=== PATIENT | male | born 1955 | race Caucasian/White ===

== ENCOUNTER 2017-06-28 09:21 | Observation (INO) | payer OTHER, MEDICAID ==
[2017-06-28] VITALS (11 sets, daily range): BP systolic 140–164; BP diastolic 75–92; PULSE 68–89; RESP 16–20; TEMP 96.1–98.4; O2SAT 95–97
[~2017-06-28] VITALS: Ht 193 cm; Wt 83.7 kg
[~2017-06-28 09:21] MED LIST: ATOR20TA42 PO; CYCL-36 PO; LEVO.05 PO; LITH300 PO; NAPR250T57 PO; OLAN2.5T PO; OMEP10CA37 PO; PROP10TA6 PO
[2017-06-28] MEDS ORDERED: SODIUM CHLORIDE 0.9% FLUSH 10 ML FLUSH IVF PRN (09:45)
--- NOTE | 2017-06-28 09:51 | PD ---
HPI Chief Complaint: Neuro Symptoms/ Deficits Time Seen by Provider: 09:28 Travel History International Travel<30 days: No Contact w/Intl Traveler<30days: No Traveled to known affect area: No History of Present Illness HPI The patient is a 62-year-old male who presents to the emergency department. Painless loss of vision in the left eye. The patient with the bed last night feeling well with no difficulties, when he awakened this morning he noticed that he had lost most of the vision of the left eye. The patient states he is able to see light from the left eye and it feels like everything is standing behind a curtain. He denies any pain with the left eye and denies any history of vision loss in the past. The patient does have a history of hypertension, hyperlipidemia and tobacco use. He denies any known history of CAD, PVD, or previous TIA/CVA. The patient's denies any trauma to the left eye , simply states he awakened with diminished vision out of the left eye. Symptoms are moderate, there are no current alleviating or exacerbating factors. The patient also complains of being lightheaded and dizzy, denies any dysarthria or focal deficits of the upper or lower extremities. PFSH Past Medical History Arthritis: Yes Bipolar Disorder: Yes Cardiovascular Problems: Yes COPD: Yes (EMPHYSEMA) Diminished Hearing: No Endocrine: No Gastrointestinal Disorders: No Genitourinary: No Hepatitis: Yes (C) Immune Disorder: No Musculoskeletal: Yes Neurologic: No Respiratory: No Immunizations Current: Yes Thyroid Disease: Yes Past Surgical History Cholecystectomy: Yes Other Surgery: No Social History Alcohol Use: No Tobacco Use: Yes Substance Use: No Allergies-Medications (Allergen,Severity, Reaction): Coded Allergies: No Known Allergies (Verified , 03/18/16) Reported Meds & Prescriptions Reported Meds & Active Scripts Active Reported Levothyroxine (Levothyroxine Sodium) 50 Mcg Tab 50 Mcg PO DAILY Flexeril (Cyclobenzaprine HCl) 10 Mg Tab 10 Mg PO TID Atorvastatin (Atorvastatin Calcium) 20 Mg Tab 20 Mg PO DAILY Olanzapine 2.5 Mg Tab 2.5 Mg PO BID Omeprazole 10 Mg Cap 10 Mg PO DAILY Propranolol (Propranolol HCl) 10 Mg Tab 10 Mg PO Q12HR Review of Systems Except as stated in HPI: all other systems reviewed are Neg General / Constitutional: No: Fever Eyes: Positive: Visual changes, Blindness, No: Diploplia, Photophobia, Redness , Foreign Body Sensation, Pain, Tearing HENT: Positive: Lightheadedness, No: Headaches Cardiovascular: No: Chest Pain or Discomfort Respiratory: No: Shortness of Breath Gastrointestinal: No: Nausea, Vomiting, Abdominal Pain Musculoskeletal: No: Weakness Neurologic: Positive: Dizziness, No: Focal Abnormalities, Headache, Change in Mentation, Slurred Speech, Paresthesia, Sensory Disturbance Physical Exam Narrative GENERAL: Awake, alert, pleasant 62-year-old male who appears his stated age and is in no acute respiratory distress. SKIN: Focused skin assessment warm/dry. HEAD: Atraumatic. Normocephalic. EYES: Pupils equal and round. The right pupil response to light and there is consensual constriction of the left eye. However, the left eye does not constrict with light, appears to have afferent pupillary defect. EOMs are intact. Patient is able to see fingers at a distance of 2 feet from the right eye without difficulty, has difficulty seeing shapes out of the left eye at 2 feet. Cannot see my hand or fingers at a distance of 2 feet. ENT: No nasal bleeding or discharge. No visible teeth. Breath smells of tobacco. NECK: Trachea midline. No JVD. CARDIOVASCULAR: Regular rate and rhythm. No murmur appreciated. RESPIRATORY: No accessory muscle use. Clear to auscultation. Breath sounds equal bilaterally. GASTROINTESTINAL: Abdomen soft, non-tender, nondistended. No rebound tenderness. MUSCULOSKELETAL: No obvious deformities. No clubbing. No cyanosis. No edema. NEUROLOGICAL: Awake and alert. Afferent left pupillary defect. Motor grossly within normal limits. Normal speech. Nonfocal. Alert and oriented 4. No drift of the upper or lower extremities. Finger to nose is normal. Heel-to- gutierrez is normal. PSYCHIATRIC: Appropriate mood and affect; insight and judgment normal. Data Data Last Documented VS Vital Signs Date Time Temp Pulse Resp B/P (MAP) Pulse Ox O2 Delivery O2 Flow Rate FiO2 06/28/17 10:42 Room Air 06/28/17 10:25 87 17 97 06/28/17 09:30 98.4 Orders Orders Electrocardiogram (06/28/17 09:38) Prothrombin Time / Inr (Pt) (06/28/17 09:38) Act Partial Throm Time (Ptt) (06/28/17 09:38) Complete Blood Count With Diff (06/28/17 09:38) Comprehensive Metabolic Panel (06/28/17 09:38) Creatine Kinase (Cpk) (06/28/17 09:38) Troponin I (06/28/17 09:38) Ct Brain W/O Iv Contrast(Rout) (06/28/17 09:38) Ecg Monitoring (06/28/17 09:38) Iv Access Insert/Monitor (06/28/17 09:38) Oximetry (06/28/17 09:38) Sodium Chloride 0.9% Flush (Ns Flush) (06/28/17 09:45) Aspirin Chew (Aspirin Chew) (06/29/17 09:00) Aspirin Chew (Aspirin Chew) (06/28/17 10:30) Admit To Inpatient (06/28/17 ) Nih Stroke Scale - Nihss .On admission and discharge (06/28/17 10:43) Neuro Checks Q4H (06/28/17 10:43) Notify Dr: Other (06/28/17 10:43) Consult Pt Eval & Treat (06/28/17 10:43) Case Management Consult (06/28/17 ) Activity Bed Rest (06/28/17 10:43) Nursing Bedside Swallow Assess .ONCE (06/28/17 10:43) Scd Bilateral/Knee High DUONG.QSHIFT (06/28/17 10:43) Hemoglobin (Hgb) A1c (06/28/17 10:43) Lipid Profile (06/29/17 06:00) Us Carotid Arteries Comp Bilat (06/28/17 ) Holter Monitor Recording (06/28/17 ) Mri Brain W/O Contrast (06/28/17 ) Echo 2d Comp With Doppler (06/28/17 ) Resp Oxygen Erickson C Titrat 1-4 L (06/28/17 ) ^ Hold Medication (06/28/17 10:43) Consult Neurology (06/28/17 ) Sodium Chloride 0.9% Flush (Ns Flush) (06/28/17 21:00) Sodium Chloride 0.9% Flush (Ns Flush) (06/28/17 10:45) Enalaprilat Inj (Vasotec Inj) (06/28/17 10:45) Aspirin (Aspirin) (06/29/17 09:00) Bedside Glucose DUONG.CSUGAR (06/28/17 10:43) ^ Discontinue Insulin Orders (06/28/17 10:43) Insulin Aspart Supplemtl Scale (Novolog (06/28/17 12:00) Dextrose 50% In Mp (Vial) Inj (D50w (Vi (06/28/17 10:45) Glucagon Inj (Glucagon Inj) (06/28/17 10:45) Cell Tester / Telemetry DUONG.Q8H (06/28/17 10:43) Scd Bilateral/Knee High DUONG.BID (06/28/17 10:43) Inpatient Certification (06/28/17 ) Ondansetron Inj (Zofran Inj) (06/28/17 10:45) Acetaminophen (Tylenol) (06/28/17 10:45) Acetamin-Hydrocod 325-5 Mg (Belcher 5-325 (06/28/17 10:45) Magnesium Hydroxide Liq (Milk Of Magnesi (06/28/17 10:45) Atorvastatin (Lipitor) (06/29/17 09:00) Cyclobenzaprine (Flexeril) (06/28/17 13:00) Levothyroxine (Synthroid) (06/29/17 09:00) Olanzapine (Zyprexa) (06/28/17 21:00) Propranolol (Inderal) (06/28/17 21:00) (Nf) Omeprazole (06/29/17 09:00) Consult Neurology (06/28/17 ) Admit Order (Ed Use Only) (06/28/17 ) Vital Signs (Adult) Q4H (06/28/17 10:51) Diet Npo (06/28/17 Lunch) Activity Oob With Assistance (06/28/17 10:51) Labs Laboratory Tests Test 06/28/17 10:05 White Blood Count 16.3 TH/MM3 Red Blood Count 4.90 MIL/MM3 Hemoglobin 15.0 GM/DL Hematocrit 44.1 % Mean Corpuscular Volume 90.0 FL Mean Corpuscular Hemoglobin 30.7 PG Mean Corpuscular Hemoglobin Concent 34.1 % Red Cell Distribution Width 11.4 % Platelet Count 330 TH/MM3 Mean Platelet Volume 7.4 FL Neutrophils (%) (Auto) 82.0 % Lymphocytes (%) (Auto) 9.6 % Monocytes (%) (Auto) 7.6 % Eosinophils (%) (Auto) 0.0 % Basophils (%) (Auto) 0.8 % Neutrophils # (Auto) 13.4 TH/MM3 Lymphocytes # (Auto) 1.6 TH/MM3 Monocytes # (Auto) 1.2 TH/MM3 Eosinophils # (Auto) 0.0 TH/MM3 Basophils # (Auto) 0.1 TH/MM3 CBC Comment DIFF FINAL Differential Comment Prothrombin Time 10.8 SEC Prothromb Time International Ratio 1.0 RATIO Activated Partial Thromboplast Time 29.7 SEC Blood Urea Nitrogen 10 MG/DL Creatinine 1.00 MG/DL Random Glucose 112 MG/DL Total Protein 8.4 GM/DL Albumin 4.1 GM/DL Calcium Level 8.8 MG/DL Alkaline Phosphatase 96 U/L Aspartate Amino Transf (AST/SGOT) 9 U/L Alanine Aminotransferase (ALT/SGPT) 19 U/L Total Bilirubin 0.5 MG/DL Sodium Level 140 MEQ/L Potassium Level 3.8 MEQ/L Chloride Level 105 MEQ/L Carbon Dioxide Level 27.0 MEQ/L Anion Gap 8 MEQ/L Estimat Glomerular Filtration Rate 76 ML/MIN Total Creatine Kinase 99 U/L Troponin I LESS THAN 0.02 NG/ML MDM Medical Decision Making Medical Screen Exam Complete: Yes Emergency Medical Condition: Yes Medical Record Reviewed: Yes Interpretation(s) Last Impressions Head CT 06/28/17 0938 Signed Impressions: Service Date/Time: Wednesday, June 28, 2017 09:48 - CONCLUSION: 1. No acute intracranial abnormality is identified. 2. Chronic changes include mild white matter changes characteristic of chronic microvascular ischemia and old lacunes in the basal ganglia bilaterally. Isra Montelongo MD EKG reveals normal sinus rhythm with a rate 85. No ischemic changes or ectopy noted. Laboratory Tests Test 06/28/17 10:05 White Blood Count 16.3 TH/MM3 Red Blood Count 4.90 MIL/MM3 Hemoglobin 15.0 GM/DL Hematocrit 44.1 % Mean Corpuscular Volume 90.0 FL Mean Corpuscular Hemoglobin 30.7 PG Mean Corpuscular Hemoglobin Concent 34.1 % Red Cell Distribution Width 11.4 % Platelet Count 330 TH/MM3 Mean Platelet Volume 7.4 FL Neutrophils (%) (Auto) 82.0 % Lymphocytes (%) (Auto) 9.6 % Monocytes (%) (Auto) 7.6 % Eosinophils (%) (Auto) 0.0 % Basophils (%) (Auto) 0.8 % Neutrophils # (Auto) 13.4 TH/MM3 Lymphocytes # (Auto) 1.6 TH/MM3 Monocytes # (Auto) 1.2 TH/MM3 Eosinophils # (Auto) 0.0 TH/MM3 Basophils # (Auto) 0.1 TH/MM3 CBC Comment DIFF FINAL Differential Comment Prothrombin Time 10.8 SEC Prothromb Time International Ratio 1.0 RATIO Activated Partial Thromboplast Time 29.7 SEC Blood Urea Nitrogen 10 MG/DL Creatinine 1.00 MG/DL Random Glucose 112 MG/DL Total Protein 8.4 GM/DL Albumin 4.1 GM/DL Calcium Level 8.8 MG/DL Alkaline Phosphatase 96 U/L Aspartate Amino Transf (AST/SGOT) 9 U/L Alanine Aminotransferase (ALT/SGPT) 19 U/L Total Bilirubin 0.5 MG/DL Sodium Level 140 MEQ/L Potassium Level 3.8 MEQ/L Chloride Level 105 MEQ/L Carbon Dioxide Level 27.0 MEQ/L Anion Gap 8 MEQ/L Estimat Glomerular Filtration Rate 76 ML/MIN Total Creatine Kinase 99 U/L Troponin I LESS THAN 0.02 NG/ML Differential Diagnosis Differential diagnosis includes amaurosis fugax, CVA, TIA, central retinal artery occlusion, central retinal vein occlusion, MS, optic neuritis. Narrative Course IV was established, labs are drawn and sent, and the patient was placed on cardiac telemetry monitoring and continuous pulse oximetry monitoring. EKG was ordered and interpreted. Stat CT of the brain was obtained. A call was placed to neurology at 9:[address] of the brain reveals old lacunar infarcts and chronic small white vascular changes, no hemorrhage, therefore, patient was administered aspirin 162 mg orally. Laboratory evaluation is unremarkable. Patient has monocular vision loss with dizziness, most likely versus food, possibly ischemic. TIA/CVA. I had a discussion with the neurologist on-call, Dr. Marsh, who request MRI of the brain and ultrasound of the carotids. I discussed the patient with the on-call hospitalist for [facility], Dr. Baum, who agrees with 23 hour observation. Physician Communication Physician Communication I discussed the patient with Dr. Baum who agrees with 23 hour observation. Diagnosis Primary Impression: Amaurosis fugax of left eye Admitting Information Admitting Physician Requests: Observation Condition: Stable Harry Arteaga MD Jun 28, 2017 09:51
--- NOTE | 2017-06-28 10:02 | RADRPT ---
EXAM DATE/TIME: 06/28/2017 09:48 [facility] COMPARISON: No previous studies available for comparison. INDICATIONS : Dizziness. Visual disturbance left eye. Evaluate for cerebral vascular accident. RADIATION DOSE: 63.01 CTDIvol (mGy) MEDICAL HISTORY : Patient reports that he is unable to see out of his left eye. Chronic obstructive pulmonary disease. Hepatitis C. SURGICAL HISTORY : Cholecystectomy. ENCOUNTER: Initial ACUITY: 1 day PAIN SCALE: 0/10 LOCATION: cranial TECHNIQUE: Multiple contiguous axial images were obtained of the head. Using automated exposure control and adj ustment of the mA and/or kV according to patient size, radiation dose was kept as low as reasonably a chievable to obtain optimal diagnostic quality images. DICOM format image data is available electro nically for review and comparison. FINDINGS: CEREBRUM: There is mild generalized atrophy. Ventricles are normal. There is mild periventricular white matter low attenuation. There are 2 right and one left well-defined low-density in the left basal ganglia ch aracteristic of old lacunes. No evidence of midline shift, mass lesion, hemorrhage or acute infarcti on. No extra-axial fluid collections are seen. POSTERIOR FOSSA: The cerebellum and brainstem are intact. The 4th ventricle is midline. The cerebellopontine angle i s unremarkable. EXTRACRANIAL: Visualized sinuses are clear. The globes have a normal appearance. SKULL: The calvaria is intact. No evidence of skull fracture. CONCLUSION: 1. No acute intracranial abnormality is identified. 2. Chronic changes include mild white matter changes characteristic of chronic microvascular ischemia and old lacunes in the basal ganglia bilaterally. Isra Montelongo MD on June 28, 2017 at 9:57 Board Certified Radiologist. This report was verified electronically.
[2017-06-28 10:12] LABS: AUTOMATED NEUTROPHIL # 13.4 TH/MM3 (1.8-7.7); BASOPHIL # 0.1 TH/MM3 (0-0.2); BASOPHIL % 0.8 % (0.0-2.0); HEMATOCRIT 44.1 % (39.0-51.0); LYMPH % 9.6 % (9.0-44.0); LYMPHOCYTE # 1.6 TH/MM3 (1.0-4.8); MEAN CORPUSCULAR HEMOGLOBIN 30.7 PG (27.0-34.0); MEAN CORPUSCULAR HGB CONC 34.1 % (32.0-36.0); MONO % 7.6 % (0.0-8.0); PLATELET COUNT 330 TH/MM3 (150-450); RED CELL DISTRIBUTION WIDTH 11.4 % (11.6-17.2); WHITE BLOOD COUNT 16.3 TH/MM3 (4.0-11.0)
[2017-06-28 10:13] LABS: HEMO FLAGS DIFF FINAL
[2017-06-28 10:21] LABS: CHLORIDE 105 MEQ/L (98-107); POTASSIUM 3.8 MEQ/L (3.5-5.1); SODIUM (NA) 140 MEQ/L (136-145)
[2017-06-28 10:25] LABS: ANION GAP 8 MEQ/L (5-15); APTT (PATIENT) 29.7 SEC (24.3-30.1); BLOOD UREA NITROGEN 10 MG/DL (7-18); PROTHROMBIN TIME - PATIENT 10.8 SEC (9.8-11.6)
[2017-06-28 10:28] LABS: ALT (GPT) 19 U/L (12-78); AST (GOT) 9 U/L (15-37); GLOMERULAR FILTRATION RATE 76 ML/MIN (>89)
[2017-06-28 10:29] LABS: TOTAL BILIRUBIN ADULT 0.5 MG/DL (0.2-1.0)
[2017-06-28] MEDS ORDERED: ASPIRIN 81 MG CHEW TAB CHEW ONE (10:30)
[2017-06-28 10:31] LABS: ALKALINE PHOSPHATASE 96 U/L (45-117)
[2017-06-28 10:37] LABS: CREATINE KINASE 99 U/L (39-308)
[2017-06-28] MEDS ORDERED: CYCL1TAB29 PO (10:40)
[2017-06-28] MEDS ORDERED: OLAN2.5T PO (10:40)
[2017-06-28] MEDS ORDERED: PROP10TA6 PO (10:40)
[2017-06-28] MEDS ORDERED: ATOR20TA15 PO (10:40)
[2017-06-28] MEDS ORDERED: OMEP10CA PO (10:40)
[2017-06-28] MEDS ORDERED: LEVO50TA4 PO (10:40)
[2017-06-28] MEDS ORDERED: ACETAMINOPHEN/HYDROcodone 325 MG/5 MG TAB PO PRN (10:45)
[2017-06-28] MEDS ORDERED: ACETAMINOPHEN 325 MG TAB PO PRN (10:45)
[2017-06-28] MEDS ORDERED: SODIUM CHLORIDE 0.9% FLUSH 5 ML FLUSH IV FLUSH PRN (10:45)
[2017-06-28] MEDS ORDERED: ENALAPRILAT 1.25 MG/ML VIAL IV PUSH PRN (10:45)
[2017-06-28] MEDS ORDERED: DEXTROSE 50% IN WATER 50 ML VIAL(D50) IV PUSH PRN (10:45)
[2017-06-28] MEDS ORDERED: MAGNESIUM HYDROXIDE SUSP 30 ML CUP PO PRN (10:45)
[2017-06-28] MEDS ORDERED: GLUCAGON 1 MG/ML VIAL OTHER PRN (10:45)
[2017-06-28] MEDS ORDERED: ONDANSETRON HCL 4 MG/2 ML VIAL IVP PRN (10:45)
[2017-06-28] MEDS: INSULIN ASPART SUPPLEMENTAL SCALE SQ SCH ×3 (12:00→21:00)
--- NOTE | 2017-06-28 12:01 | RADRPT ---
EXAM DATE/TIME: 06/28/2017 11:23 [facility] COMPARISON: No previous studies available for comparison. INDICATIONS : Amarosis fugax left. MEDICAL HISTORY : Hepatitis C. Hypertension. Chronic obstructive pulmonary disease. SURGICAL HISTORY : Cholecystectomy. ENCOUNTER: Initial ACUITY: 1 day PAIN SCORE: 0/10 LOCATION: Bilateral neck PEAK SYSTOLIC VELOCITIES (cm/sec): ICA/CCA RATIO: Right: 0.9 Left: 0.6 ICA: Right: 65 Left: 48 CCA: Right: 71 Left: 75 ECA: Right: 60 Left: 56 VERTEBRAL: Right: 40 antegrade Left: 61 antegrade Elevated flow velocities and ICA/CCA ratios have been found to correlate with increased degrees of vessel stenosis, calculated as percentage of diameter relative to a normal segment of distal ICA/CCA FINDINGS: RIGHT CAROTID: No significant stenosis is visualized. There is mild intimal thickening. The waveforms are within nor mal limits. LEFT CAROTID: No significant stenosis is visualized. There is mild intimal thickening The waveforms are within nor mal limits. VERTEBRAL ARTERIES: Antegrade flow is seen in both vertebral arteries. MISCELLANEOUS: None. CONCLUSION: 1. No significant atherosclerotic disease or stenosis is present within either internal carotid arter y. 2. There is antegrade flow within both vertebral arteries. Isra Montelongo MD on June 28, 2017 at 11:58 Board Certified Radiologist. This report was verified electronically.
[2017-06-28] MEDS: CYCLOBENZAPRINE HCL 10 MG TAB PO SCH ×2 (13:27→16:51)
--- NOTE | 2017-06-28 13:47 | HHI.HP ---
[facility] Service [facility] Primary Care Physician Josh Kauffman MD Admission Diagnosis amaurosis fugax, monocular loss of vision left eye, afferent pup Diagnoses: Chief Complaint: "I was blinded by the light" Travel History International Travel<30 Days: No Contact w/Intl Traveler <30 Da: No Traveled to Known Affected Are: No History of Present Illness This is a pleasant 62-year-old male with past medical history of hypertension, hyperlipidemia and COPD who presents for painless loss of vision in the left eye. The patient went to bed last night feeling well. When he woke this morning he noticed that he was having flashes of light in the left eye and could not see from that eye. The patient denies any history of vision problems. Patient denies slurred speech, unilateral weakness, paresthesias. No previous history of TIA or CVA. No history of atrial fibrillation. No headache. No history of coronary artery disease. He does not take an aspirin a day. Patient also complained of being somewhat lightheaded and dizzy. Symptoms moderate, no palliative or provocative factors. Review of Systems Constitutional: DENIES: Fever, Chills Eyes: COMPLAINS OF: Vision loss, DENIES: Eye pain, Photosensitivity Ears, nose, mouth, throat: DENIES: Throat pain, Hoarseness Respiratory: DENIES: Cough, Shortness of breath Cardiovascular: DENIES: Chest pain, Palpitations Gastrointestinal: DENIES: Nausea, Vomiting Genitourinary: DENIES: Urgency Musculoskeletal: DENIES: Back pain, Neck pain Integumentary: DENIES: Rash Hematologic/lymphatic: DENIES: Lymphadenopathy Neurologic: DENIES: Headache, Localized weakness, Paresthesias, Speech Problems , Poor Balance Psychiatric: DENIES: Anxiety, Confusion Past Family Social History Past Medical History Hypertension Emphysema/COPD Hyperlipidemia GERD Essential tremor Hypothyroidism Hepatitis C Past Surgical History Cholecystectomy Reported Medications Allergies Coded Allergies Type Severity Reaction Last Updated Verified No Known Allergies 03/18/16 Yes Active Scripts Medications Dose Route/Sig Max Daily Dose Days Date Category Levothyroxine (Levothyroxine Sodium) 50 Mcg Tab 50 Mcg PO DAILY 06/28/17 Reported Flexeril (Cyclobenzaprine HCl) 10 Mg Tab 10 Mg PO TID 06/28/17 Reported Atorvastatin (Atorvastatin Calcium) 20 Mg Tab 20 Mg PO DAILY 06/28/17 Reported Olanzapine 2.5 Mg Tab 2.5 Mg PO BID 06/28/17 Reported Omeprazole 10 Mg Cap 10 Mg PO DAILY 06/28/17 Reported Propranolol (Propranolol HCl) 10 Mg Tab 10 Mg PO Q12HR 06/28/17 Reported Allergies: Coded Allergies: No Known Allergies (Verified , 03/18/16) Family History Both parents suffered stroke but lived into their 90s. Social History Long-term smoking history has recently cut back to 14 cigarettes a day. No alcohol or drug use. Physical Exam Vital Signs Vital Signs Date Time Temp Pulse Resp B/P (MAP) Pulse Ox O2 Delivery O2 Flow Rate FiO2 06/28/17 12:56 76 16 158/88 (111) 97 06/28/17 12:02 Room Air 06/28/17 11:45 82 17 149/87 (107) 96 Room Air 06/28/17 10:42 Room Air 06/28/17 10:25 87 17 164/87 (112) 97 Room Air 06/28/17 09:30 98.4 89 16 162/86 (111) 95 Physical Exam GENERAL: This is a well-nourished, well-developed patient, in no apparent distress. SKIN: No rashes, ecchymoses or lesions. Cool and dry. HEAD: Atraumatic. Normocephalic. No temporal or scalp tenderness. EYES: Pupils equal round and reactive. Extraocular motions intact. No scleral icterus. No injection or drainage. ENT: Throat without erythema, tonsillar hypertrophy or exudate. Uvula midline. Airway patent. NECK: Trachea midline. No JVD or lymphadenopathy. CARDIOVASCULAR: Regular rate and rhythm without murmurs, gallops, or rubs. RESPIRATORY: Clear to auscultation. Breath sounds equal bilaterally. No wheezes , rales, or rhonchi. GASTROINTESTINAL: Abdomen soft, non-tender, nondistended. No hepato-splenomegaly , or palpable masses. No guarding. MUSCULOSKELETAL: Extremities without clubbing, cyanosis, or edema. No joint tenderness, effusion, or edema noted. NEUROLOGICAL: Awake and alert. Cranial nerves II through XII intact. Motor and sensory grossly within normal limits. Five out of 5 muscle strength in all muscle groups. Normal speech. Laboratory Laboratory Tests Test 06/28/17 10:05 White Blood Count 16.3 Red Blood Count 4.90 Hemoglobin 15.0 Hematocrit 44.1 Mean Corpuscular Volume 90.0 Mean Corpuscular Hemoglobin 30.7 Mean Corpuscular Hemoglobin Concent 34.1 Red Cell Distribution Width 11.4 Platelet Count 330 Mean Platelet Volume 7.4 Neutrophils (%) (Auto) 82.0 Lymphocytes (%) (Auto) 9.6 Monocytes (%) (Auto) 7.6 Eosinophils (%) (Auto) 0.0 Basophils (%) (Auto) 0.8 Neutrophils # (Auto) 13.4 Lymphocytes # (Auto) 1.6 Monocytes # (Auto) 1.2 Eosinophils # (Auto) 0.0 Basophils # (Auto) 0.1 CBC Comment DIFF FINAL Differential Comment Prothrombin Time 10.8 Prothromb Time International Ratio 1.0 Activated Partial Thromboplast Time 29.7 Blood Urea Nitrogen 10 Creatinine 1.00 Random Glucose 112 Total Protein 8.4 Albumin 4.1 Calcium Level 8.8 Alkaline Phosphatase 96 Aspartate Amino Transf (AST/SGOT) 9 Alanine Aminotransferase (ALT/SGPT) 19 Total Bilirubin 0.5 Sodium Level 140 Potassium Level 3.8 Chloride Level 105 Carbon Dioxide Level 27.0 Anion Gap 8 Estimat Glomerular Filtration Rate 76 Total Creatine Kinase 99 Troponin I LESS THAN 0.02 Result Diagram: 06/28/17 1005 06/28/17 1005 Imaging EKG shows normal sinus rhythm. Last Impressions Head CT 06/28/17 0938 Signed Impressions: Service Date/Time: Wednesday, June 28, 2017 09:48 - CONCLUSION: 1. No acute intracranial abnormality is identified. 2. Chronic changes include mild white matter changes characteristic of chronic microvascular ischemia and old lacunes in the basal ganglia bilaterally. Isra Montelongo MD Carotid Artery Ultrasound 06/28/17 0000 Signed Impressions: Service Date/Time: Wednesday, June 28, 2017 11:23 - CONCLUSION: 1. No significant atherosclerotic disease or stenosis is present within either internal carotid artery. 2. There is antegrade flow within both vertebral arteries. MD Alyssa Dyer VTE Risk Assessment Caprini VTE Risk Assessment: Mod/High Risk (score >= 2) Caprini Risk Assessment Model Point Value = 1 Point Value = 2 Point Value = 3 Point Value = 5 Age 41-60 Minor surgery BMI > 25 kg/m2 Swollen legs Varicose veins or History of unexplained or recurrent spontaneous Oral contraceptives or hormone replacement Sepsis (< 1 month) Serious lung disease, including pneumonia (< 1 month) Abnormal pulmonary function Acute myocardial infarction Congestive heart failure (< 1 month) History of inflammatory bowel disease Medical patient at bed rest Age 61-74 Arthroscopic surgery Major open surgery (> 45 min) Laparoscopic surgery (> 45 min) Malignancy Confined to bed (> 72 hours) Immobilizing plaster cast Central venous access Age >= 75 History of VTE Family history of VTE Factor V Leiden Prothrombin 13127G Lupus anticoagulant Anticardiolipin antibodies Elevated serum homocysteine Heparin-induced thrombocytopenia Other congenital or acquired thrombophilia Stroke (< 1 month) Elective arthroplasty Hip, pelvis, or leg fracture Acute spinal cord injury (< 1 month) Prophylaxis Regimen Total Risk Factor Score Risk Level Prophylaxis Regimen 0-1 Low Early ambulation 2 Moderate Order ONE of the following: *Sequential Compression Device (SCD) *Heparin 5000 units SQ BID 3-4 Higher Order ONE of the following medications: *Heparin 5000 units SQ TID *Enoxaparin/Lovenox 40 mg SQ daily (WT < 150 kg, CrCl > 30 mL/min) *Enoxaparin/Lovenox 30 mg SQ daily (WT < 150 kg, CrCl > 10-29 mL/min) *Enoxaparin/Lovenox 30 mg SQ BID (WT < 150 kg, CrCl > 30 mL/min) AND/OR *Sequential Compression Device (SCD) 5 or more Highest Order ONE of the following medications: *Heparin 5000 units SQ TID (Preferred with Epidurals) *Enoxaparin/Lovenox 40 mg SQ daily (WT < 150 kg, CrCl > 30 mL/min) *Enoxaparin/Lovenox 30 mg SQ daily (WT < 150 kg, CrCl > 10-29 mL/min) *Enoxaparin/Lovenox 30 mg SQ BID (WT < 150 kg, CrCl > 30 mL/min) AND *Sequential Compression Device (SCD) Assessment and Plan Assessment and Plan -Unilateral painless vision loss in the left eye beginning this morning. Symptoms are ongoing. Doppler carotid ultrasound is negative for carotid artery disease. No other signs or symptoms of stroke. Will admit, consult neurology and ophthalmology, CVA workup. Treat with aspirin. -Hypertension - continue propanolol. -Emphysema/COPD-no acute exacerbation. -Hyperlipidemia - continue statin. -GERD - continue omeprazole. Essential tremor-continue propranolol. -Hypothyroidism - continue Synthroid. -DVT prophylaxis with SCDs. Kaelyn Baum MD Jun 28, 2017 13:47
--- NOTE | 2017-06-28 16:00 | RADRPT ---
EXAM DATE/TIME: 06/28/2017 15:23 [place] COMPARISON: CT BRAIN W/O CONTRAST, June 28, 2017, 9:48. INDICATIONS : CVA. Loss of vision left eye. MEDICAL HISTORY : Cardiovascular disease Chronic obstructive pulmonary disease. Hepatitis C. SURGICAL HISTORY : Cholecystectomy. ENCOUNTER: Initial ACUITY: 1 day PAIN SCORE: 0/10 LOCATION: cranial TECHNIQUE: Multiplanar, multisequence MRI of the brain was performed without contrast. FINDINGS: CEREBRUM: The ventricles are normal for age. There is diffuse bilateral cortical atrophy. No evidence of midli ne shift, mass lesion, hemorrhage or acute infarction. No extraaxial fluid collections are seen. Th e pituitary gland and suprasellar cistern are normal in configuration. WHITE MATTER: There is moderate diffuse chronic white matter changes bilaterally. POSTERIOR FOSSA: The cerebellum and brainstem are intact. The 4th ventricle is midline. The cerebellopontine angle is unremarkable. The cerebellar tonsils are normal in position. DIFFUSION IMAGING: No focal areas of restricted diffusion are seen. No evidence of acute infarction. EXTRACRANIAL: The visualized portions of the orbits and paranasal sinuses are unremarkable. CONCLUSION: 1. Diffuse bilateral cortical atrophy and chronic white matter changes. 2. Otherwise, unremarkable exam for patient's age. Von Jay MD on June 28, 2017 at 15:56 Board Certified Radiologist. This report was verified electronically.
[2017-06-28] MEDS: PROPRANOLOL HCL 10 MG TAB PO SCH (20:43)
[2017-06-28] MEDS: OLANZapine 2.5 MG TAB PO SCH (20:43)
[2017-06-28] MEDS: SODIUM CHLORIDE 0.9% FLUSH 5 ML FLUSH IV FLUSH SCH (21:00)
--- NOTE | 2017-06-28 21:14 | EKG ---
Date Performed: 06/28/2017 Time Performed: 10:15:21 PTAGE: 62 years EKG: Sinus rhythm NORMAL ECG PREVIOUS TRACING : 12/24/2013 13.12 Compared to prior tracing no significant change DOCTOR: Dedrick Buckner Interpretating Date/Time 06/28/2017 21:11:59
[2017-06-29] VITALS (9 sets, daily range): BP systolic 137–159; BP diastolic 84–100; PULSE 73–83; RESP 16–20; TEMP 96.5–98.1; O2SAT 93–95
[2017-06-29] MEDS: LEVOTHYROXINE SODIUM 50 MCG TAB PO SCH (06:21)
[2017-06-29] MEDS: INSULIN ASPART SUPPLEMENTAL SCALE SQ SCH ×4 (07:42→20:39)
[2017-06-29] MEDS ORDERED: ATORVASTATIN 20 MG TAB PO SCH (09:00)
[2017-06-29] MEDS: SODIUM CHLORIDE 0.9% FLUSH 5 ML FLUSH IV FLUSH SCH ×2 (09:00→20:38)
[2017-06-29] MEDS ORDERED: ASPIRIN 81 MG CHEW TAB CHEW SCH (09:00)
[2017-06-29] MEDS: ASPIRIN 325 MG TAB PO SCH (09:21)
[2017-06-29] MEDS: CYCLOBENZAPRINE HCL 10 MG TAB PO SCH ×3 (09:21→17:28)
[2017-06-29] MEDS: PROPRANOLOL HCL 10 MG TAB PO SCH ×2 (09:21→20:38)
[2017-06-29] MEDS: OLANZapine 2.5 MG TAB PO SCH ×2 (09:21→20:38)
[2017-06-29] MEDS: PANTOPRAZOLE SOD 20 MG DELAYED RELEASE TAB PO SCH (09:21)
[2017-06-29] MEDS ORDERED: INFLUENZA VIRUS VACCINE (QUADRIVALENT) 0.5 ML SYR IM ONE (10:00)
[2017-06-29] MEDS ORDERED: PNEUMOCOCCAL POLYVALENT INJ 25 MCG/0.5 ML SYR IM ONE (10:00)
--- NOTE | 2017-06-29 10:07 | MB ---
cc: MAURICIO AVALOS MD DATE OF CONSULTATION: 06/29/2017 REASON FOR CONSULTATION: Loss of vision. HISTORY OF PRESENT ILLNESS Mr. Oscar is a 62-year-old male with past medical history of hypertension, hyperlipidemia, COPD, eczema who presented to the [facility] emergency room because of sudden painless loss of vision on the left eye. The patient states that he went to bed feeling well, woke up the next morning with loss of vision of the left eye. He was not able to see. He denies headache, double vision, slurred speech, droopy face, or weakness of an extremity. Denies any similar episode in the past. He is aspirin naive. REVIEW OF SYSTEMS A 12-point review of systems negative except for what is stated in the HPI. PAST MEDICAL HISTORY 1. Hypertension 2. Emphysema/ chronic obstructive pulmonary disease. 3. Hyperlipidemia 4. gastroesophageal reflux disease 5. Essential tremor 6. Hypothyroidism 7. hepatitis PAST SURGICAL HISTORY Cholecystectomy. MEDICATIONS 1. Levothyroxine. 2. Flexeril 3. Atorvastatin 4. Omeprazole. 6. Propranolol. ALLERGIES Next no known allergies. FAMILY HISTORY Both parents had a history of stroke. SOCIAL HISTORY Denies alcohol or drug abuse but long-term smoker and currently cutting down and smoking 14 cigarettes/day. PHYSICAL EXAMINATION GENERAL: Awake, alert, good historian in mild distress HEAD, EYES, EARS, NOSE, AND THROAT: Atraumatic, normocephalic. Diminished vision on the left eye normal on the right eye. Intact hearing. NECK: No carotid bruit. No signs of meningeal irritation. CARDIOVASCULAR SYSTEM: Regular rate and rhythm. RESPIRATORY: Clear to auscultation. No wheezes. GASTROINTESTINAL: Soft abdomen, nontender. MUSCULOSKELETAL: Extremities without clubbing, cyanosis or edema. Moves extremities equally. NEUROLOGIC: Awake, alert, oriented to time, person and place. No dysphagia. No dysarthria and intact speech content, the left pupil with afferent pupillary defect / APE, right pupil is normal reacting to light. No nystagmus. Diminished vision on the left eye to finger count. No ptosis. Intact facial sensation. No facial asymmetry. Motor system examination, 5/5 throughout bilateral and symmetrical. No abnormal movement, normal tone. Intact sensation throughout pain and temperature. Reflexes 2+ bilaterally, symmetrical. Plantars bilaterally downgoing. Jelzwt-my-fozt, esmu-yi-meqs is intact bilateral and symmetrical. PSYCHIATRY: Normal mood and behavior. Mildly anxious. LABORATORY FINDINGS: White blood cells 60.3, hemoglobin 15, platelet count 330, INR one. White blood cells 140, potassium 3.8, anion gap eight, BUN 10, creatinine one. DIAGNOSTICS/IMAGING STUDIES - Head CT scan no acute intracranial abnormality but chronic changes with mild white matter changes, history of chronic microvascular ischemia and old lacunar is in the basal ganglia bilaterally. - Brain MRI without contrast revealed diffuse bilateral cortical atrophy and chronic white matter changes, otherwise unremarkable for the patients age. - Carotid ultrasound with no significant atherosclerotic disease in either internal carotid artery. There is antegrade flow in both vertebral arteries. - The EKG normal sinus rhythm. DIAGNOSTIC IMPRESSION 1. Acute left ischemic optic neuropathy Likely secondary to an embolus 2. Hypertension. 3. Hyperlipidemia 4. Hypothyroidism. PLAN 1. Neuro checks q. Four hourly 2. Aspirin 325 mg daily 3. Atorvastatin 20 mg daily 4. CTA neck. 5. Telemonitoring. 6. Echocardiogram. 7. Consult ophthalmology. Their recommendations are appreciated. 8 DVT prophylaxis. 9. GI prophylaxis. Thank you for the opportunity to participate in the care of your patient. MD SHAKIRA Asif/sammy /8:24 AM /9:53 AM ANTWON
[2017-06-29 11:11] LABS: HEMOGLOBIN A1a 1.1 %; HEMOGLOBIN A1b 0.9 %; HEMOGLOBIN F 0.8 %; HEMOGLOBIN LA1C 1.3 %; HEMOGLOBIN P3 3.2 %
[2017-06-29 12:50] LABS: HDL CHOLESTEROL 35.4 MG/DL (40.0-60.0)
--- NOTE | 2017-06-29 13:12 | HHI.PR ---
Subjective Remarks Patient has no improvement of vision in the left eye. He states he can see some outlines of shapes. Denies headache or eye pain. Objective Vitals Vital Signs Date Time Temp Pulse Resp B/P (MAP) Pulse Ox O2 Delivery O2 Flow Rate FiO2 06/29/17 12:00 96.5 75 20 159/100 (119) 95 06/29/17 09:22 93 06/29/17 08:00 97.2 75 20 151/92 (111) 94 06/29/17 04:00 96.6 73 18 159/85 (109) 95 06/28/17 23:49 96.1 68 18 153/87 (109) 95 06/28/17 20:25 96 21 06/28/17 20:00 96.8 76 18 140/75 (96) 96 06/28/17 17:16 97 21 06/28/17 16:00 97.6 75 20 153/76 (101) 97 06/28/17 15:00 89 06/28/17 13:15 97.4 82 18 157/92 (113) 97 I/O 06/28/17 06/28/17 06/28/17 06/29/17 06/29/17 06/29/17 07:00 15:00 23:00 07:00 15:00 23:00 Intake Total 240 ml Output Total 1400 ml Balance -1400 ml 240 ml Intake Oral 240 ml Output Urine Total 1400 ml # Voids 1 2 # Bowel Movements 0 Result Diagram: 06/28/17 1005 06/28/17 1005 Objective Remarks GENERAL: This is a well-nourished, well-developed lean male patient with a long chilel ryan, in no apparent distress. SKIN: No rashes, ecchymoses or lesions. Cool and dry. HEAD: Atraumatic. Normocephalic. No temporal or scalp tenderness. EYES: Pupils equal round and reactive. Extraocular motions intact. No scleral icterus. No injection or drainage. ENT: Throat without erythema, tonsillar hypertrophy or exudate. Uvula midline. Airway patent. NECK: Trachea midline. No JVD or lymphadenopathy. CARDIOVASCULAR: Regular rate and rhythm without murmurs, gallops, or rubs. RESPIRATORY: Clear to auscultation. Breath sounds equal bilaterally. No wheezes , rales, or rhonchi. GASTROINTESTINAL: Abdomen soft, non-tender, nondistended. No hepato-splenomegaly , or palpable masses. No guarding. MUSCULOSKELETAL: Extremities without clubbing, cyanosis, or edema. No joint tenderness, effusion, or edema noted. NEUROLOGICAL: Awake and alert. Cranial nerves II through XII intact. Motor and sensory grossly within normal limits. Five out of 5 muscle strength in all muscle groups. Normal speech. A/P Assessment and Plan -Unilateral painless vision loss in the left eye/ likely acute ischemic optic neuropathy Symptoms are ongoing. Doppler carotid ultrasound is negative for carotid artery disease, neck CTA pending. Brain MRI negative. Echocardiogram pending. Holter pending. LDL is 131, I will increase his statin. Appreciate neurology input. There is no valet service attendant on-call here over the weekend. Continue aspirin. -Hypertension - continue propanolol. -Emphysema/COPD-no acute exacerbation. -Hyperlipidemia - continue statin. -GERD - continue omeprazole. Essential tremor-continue propranolol. -Hypothyroidism - continue Synthroid. -DVT prophylaxis with SCDs. Kaelyn Baum MD Jun 29, 2017 13:12
--- NOTE | 2017-06-29 15:38 | ECHRPT ---
Indication: CVA/TIA CONCLUSIONS Normal left ventricular size. Mild concentric left ventricular hypertrophy. The left ventricular systolic function is hyperdynamic with an estimated ejection fraction in the ra nge of 65- 70%. Very technically difficult and limited study BP: 151 / 92 HR: Rhythm: Sinus MEASUREMENTS (Male / Female) Normal Values Technical Quality:Very technically difficult study M-MODE LV Diastolic Diameter MM 3.8 cm 4.2 - 5.9 / 3.9 - 5.3 cm LV Systolic Diameter MM 2.7 cm LV Ejection Fraction MM Teich 58.4 % IVS Diastolic Thickness MM 1.1 cm 0.6 - 1.0 / 0.6 - 0.9 cm LVPW Diastolic Thickness MM 1.4 cm 0.6 - 1.0 / 0.6 - 0.9 cm LV Relative Wall Thickness MM 0.6 0.24 - 0.42 / 0.22 - 0.42 RV Diastolic Diameter MM 1.9 cm DOPPLER AV Peak Velocity 146.0 cm/s AV Peak Gradient 8.5 mmHg AV Mean Gradient 5.0 mmHg AV Velocity Time Integral 26.4 cm LVOT Peak Velocity 100.0 cm/s LVOT Peak Gradient 4.0 mmHg LVOT Velocity Time Integral 20.9 cm Mitral E Point Velocity 55.8 cm/s Mitral A Point Velocity 57.3 cm/s Mitral E to A Ratio 1.0 LV E' Lateral Velocity 10.5 cm/s Mitral E to LV E' Lateral Ratio 5.3 LV E' Septal Velocity 7.6 cm/s Mitral E to LV E' Septal Ratio 7.3 FINDINGS LEFT VENTRICLE Normal left ventricular size. Mild concentric left ventricular hypertrophy. The left ventricular systolic function is hyperdynamic with an estimated ejection fraction in the ra nge of 65- 70%. Jd Salazar MD (Electronically Signed) Final Date:29 June 2017 15:37
[2017-06-30 01:24] VITALS: BP 148/79; PULSE 72; RESP 18; TEMP 96.8; O2SAT 97
[2017-06-30 04:00] VITALS: BP 132/79; PULSE 75; RESP 20; TEMP 97; O2SAT 96
[2017-06-30] MEDS: LEVOTHYROXINE SODIUM 50 MCG TAB PO SCH (06:00)
[2017-06-30 07:50] VITALS: BP 161/95; PULSE 71; RESP 20; TEMP 96.7; O2SAT 94
[2017-06-30] MEDS: INSULIN ASPART SUPPLEMENTAL SCALE SQ SCH ×2 (08:00→12:00)
[2017-06-30 08:14] VITALS: PULSE 75
[2017-06-30] MEDS: CYCLOBENZAPRINE HCL 10 MG TAB PO SCH ×2 (08:51→12:20)
[2017-06-30] MEDS: PANTOPRAZOLE SOD 20 MG DELAYED RELEASE TAB PO SCH (08:52)
[2017-06-30] MEDS: OLANZapine 2.5 MG TAB PO SCH (08:52)
[2017-06-30] MEDS: ASPIRIN 325 MG TAB PO SCH (08:52)
[2017-06-30] MEDS: PROPRANOLOL HCL 10 MG TAB PO SCH (08:52)
[2017-06-30] MEDS: SODIUM CHLORIDE 0.9% FLUSH 5 ML FLUSH IV FLUSH SCH (08:55)
[2017-06-30] MEDS ORDERED: ATORVASTATIN 80 MG TAB PO SCH (09:00)
[2017-06-30 11:50] VITALS: BP 158/95; PULSE 80; RESP 20; TEMP 98; O2SAT 94
--- NOTE | 2017-06-30 12:19 | HHI.DS ---
Discharge Summary Admission Date Jun 28, 2017 at 10:53 Discharge Date: Jun 30, 2017 Admitting Diagnosis Acute ischemic optic neuropathy a left eye (1) Acute ischemic optic neuropathy of left eye ICD Code: H47.012 - Ischemic optic neuropathy, left eye Procedures none Brief History - From Admission This is a pleasant 62-year-old male with past medical history of hypertension, hyperlipidemia and COPD who presents for painless loss of vision in the left eye. The patient went to bed last night feeling well. When he woke this morning he noticed that he was having flashes of light in the left eye and could not see from that eye. The patient denies any history of vision problems. Patient denies slurred speech, unilateral weakness, paresthesias. No previous history of TIA or CVA. No history of atrial fibrillation. No headache. No history of coronary artery disease. He does not take an aspirin a day. Patient also complained of being somewhat lightheaded and dizzy. Symptoms moderate, no palliative or provocative factors. CBC/BMP: 06/28/17 1005 06/28/17 1005 Significant Findings Laboratory Tests Test 06/28/17 10:05 06/28/17 16:00 06/29/17 06:20 White Blood Count 16.3 TH/MM3 (4.0-11.0) Red Cell Distribution Width 11.4 % (11.6-17.2) Neutrophils (%) (Auto) 82.0 % (16.0-70.0) Neutrophils # (Auto) 13.4 TH/MM3 (1.8-7.7) Monocytes # (Auto) 1.2 TH/MM3 (0-0.9) Random Glucose 112 MG/DL (74-106) Total Protein 8.4 GM/DL (6.4-8.2) Aspartate Amino Transf (AST/SGOT) 9 U/L (15-37) Estimat Glomerular Filtration Rate 76 ML/MIN (>89) Troponin I LESS THAN 0.02 NG/ML LDL Cholesterol 131 MG/DL (0-99) HDL Cholesterol 35.4 MG/DL (40.0-60.0) Imaging Last Impressions Head CT 06/28/17 0938 Signed Impressions: Service Date/Time: Wednesday, June 28, 2017 09:48 - CONCLUSION: 1. No acute intracranial abnormality is identified. 2. Chronic changes include mild white matter changes characteristic of chronic microvascular ischemia and old lacunes in the basal ganglia bilaterally. Isra Montelongo MD Carotid Artery Ultrasound 06/28/17 0000 Signed Impressions: Service Date/Time: Wednesday, June 28, 2017 11:23 - CONCLUSION: 1. No significant atherosclerotic disease or stenosis is present within either internal carotid artery. 2. There is antegrade flow within both vertebral arteries. Isra Montelongo MD Brain MRI 06/28/17 0000 Signed Impressions: Service Date/Time: Wednesday, June 28, 2017 15:23 - CONCLUSION: 1. Diffuse bilateral cortical atrophy and chronic white matter changes. 2. Otherwise, unremarkable exam for patient's age. Von Jay MD PE at Discharge GENERAL: This is a well-nourished, well-developed lean male patient with a long chilel ryan, in no apparent distress. SKIN: No rashes, ecchymoses or lesions. Cool and dry. HEAD: Atraumatic. Normocephalic. No temporal or scalp tenderness. EYES: Pupils equal round and reactive. Extraocular motions intact. No scleral icterus. No injection or drainage. ENT: Throat without erythema, tonsillar hypertrophy or exudate. Uvula midline. Airway patent. NECK: Trachea midline. No JVD or lymphadenopathy. CARDIOVASCULAR: Regular rate and rhythm without murmurs, gallops, or rubs. RESPIRATORY: Clear to auscultation. Breath sounds equal bilaterally. No wheezes , rales, or rhonchi. GASTROINTESTINAL: Abdomen soft, non-tender, nondistended. No hepato-splenomegaly , or palpable masses. No guarding. MUSCULOSKELETAL: Extremities without clubbing, cyanosis, or edema. No joint tenderness, effusion, or edema noted. NEUROLOGICAL: Awake and alert. Cranial nerves II through XII intact. Motor and sensory grossly within normal limits. Five out of 5 muscle strength in all muscle groups. Normal speech. Hospital Course The patient was admitted to the hospital, neurology was consulted. The patient was started on aspirin. Doppler carotid ultrasound was negative for stenosis, brain MRI was negative for stroke. 2-D echocardiogram showed preserved ejection fraction and no LV clot. EKG showed normal sinus rhythm. Ophthalmology was consulted however apparently there is no ophthalmology coverage at this hospital currently. The patient did not have improvement in the left eye vision loss. LDL was elevated thus his statin was increased. The patient was encouraged to stop smoking. The patient will be discharged home today with follow-up with his primary care physician this week for ophthalmology evaluation. He is instructed to take aspirin daily. Holter monitor results are pending at discharge and should be followed by his primary care physician. Pt Condition on Discharge: Stable Discharge Disposition: Discharge Home Discharge Time: <= 30 minutes Discharge Instructions Follow up Referrals: Ophthalmology - 1 Week PCP Follow-up - 1 Week New Medications: Aspirin (Aspirin) 325 Mg Tab 325 MG PO DAILY for prevent stroke, #30 TAB Atorvastatin (Atorvastatin) 80 Mg Tab 80 MG PO DAILY for Cholesterol Management, #30 TAB Continued Medications: Cyclobenzaprine (Flexeril) 10 Mg Tab 10 MG PO TID for Muscle Spasm, #90 TAB 0 Refills Levothyroxine (Levothyroxine) 50 Mcg Tab 50 MCG PO DAILY for Thyroid, #30 TAB 0 Refills Olanzapine (Olanzapine) 2.5 Mg Tab 2.5 MG PO BID, #60 TAB 0 Refills Omeprazole (Omeprazole) 10 Mg Cap 10 MG PO DAILY, #30 CAP 0 Refills Propranolol (Propranolol) 10 Mg Tab 10 MG PO Q12HR, #60 TAB 0 Refills Discontinued Medications: Atorvastatin (Atorvastatin) 20 Mg Tab 20 MG PO DAILY for Cholesterol Management, #30 TAB 0 Refills Kaelyn Baum MD Jun 30, 2017 12:19
[2017-06-30] MEDS ORDERED: ATOR1TAB18 PO (12:21)
[2017-06-30] MEDS ORDERED: ASPI325T PO (12:21)
--- NOTE | 2017-07-01 13:55 | HM ---
Date Performed: 06/28/2017 Time Performed: 18:40:00 HOOKUP DATE: 06/28/17 06:40:00 PM Fri ANALYSIS START TIME: 06/28/2017 6:45:00 PM ANALYSIS END TIME: 06/29/2017 6:41:03 PM PATIENT AGE: 62 PATIENT HEIGHT PATIENT WEIGHT: 182 DRUG LIST PATIENT DIAGNOSIS TEST NARRATIVE: The patient's average heart rate was 76 BPM. No episodes of tachycardia wer e noted. No episodes of bradycardia were noted. No pauses exceeding 2.0 seconds were noted. 2 ventricular ectopics, which represented < 1% of the total beat count, were noted. The highest vent ricular ectopic frequency occurred from 09:00 PM to 10:00 PM Fri. During this time 1 VE(s) occurred. Ventricular ectopics were observed as 2 isolated beat(s) only. No couplets or runs were noted. No supraventricular ectopics were noted. No episodes of ST depression (defined as -1.0 mm or mor e) were noted in channel 1. No episodes of ST depression (defined as -1.0 mm or more) were noted in channel 2. No episodes of ST depression (defined as -1.0 mm or more) were noted in channel 3. NO JOHN RY GIVEN TO PATIENT TEST INTERPRETATION: 24 Hour Holter Monitor-Dr. Jd Salazar Patient was monitored for 23 h ors and 56 minutes. Minimum heart rate of 65 beats per minute, and a maximum 115 and average rate of 76 beats per minute. There were 0 pauses. There were 2 premature ventricuilar contractions, there wer e no premature atrial contractions, and no atrial fibrillation. There were no symptoms were recorded with this recording. Signed by : Malina Salazar
--- NOTE | 2017-07-04 12:06 | MB ---
cc: MAURICIO AVALOS MD DATE OF CONSULTATION 06/28/17 REASON FOR CONSULTATION Amaurosis fugax with afferent pupillary defect. HISTORY OF PRESENT ILLNESS Mr. Oscar is a 62-year-old male with past medical history of hypertension, hyperlipidemia and emphysema/COPD, a heavy smoker who presented with left eye pain and sudden loss of vision. The patient states he woke up with flashes of light of the left eye and then could not see from that eye. He denies double vision. Denies headache, however, he feels some heaviness and tightness on the left side of his forehead in V1-V2 areas. Denies slurred speech or weakness of an extremity. He states that he has been more forgetful recently. No previous history of stroke or TIA. No history of atrial fibrillation. He is aspirin naive. Upon presentation to the emergency room, his blood pressure was 157/92. REVIEW OF SYSTEMS A 12-point review of systems is negative except for what is stated in the HPI. PAST MEDICAL HISTORY 1. Hypertension, 2. Emphysema, 3. Chronic obstructive pulmonary disease 4. Hyperlipidemia, 5. Gastroesophageal reflux disease, 6. Essential tremor, 7. Hypothyroidism, 8. Hepatitis C PAST SURGICAL HISTORY Cholecystectomy MEDICATIONS 1. Levothyroxine 2. Flexeril 3. Atorvastatin 4. Omeprazole 5. Propranolol. ALLERGIES No known allergies. FAMILY HISTORY Both parents with history of stroke. SOCIAL HISTORY Long-term smoking history, trying to cut back as he states. No alcohol or drug abuse. PHYSICAL EXAMINATION GENERAL: Awake, alert, anxious, good historian. HEENT: Atraumatic, normocephalic. Diminished vision in the left eye, normal right eye. Intact hearing. NECK: No carotid bruit and no signs of meningeal irritation. CARDIOVASCULAR: Regular rate and rhythm. RESPIRATORY: Clear to auscultation. No wheezes. GASTROINTESTINAL: Soft abdomen, nontender MUSCULOSKELETAL: Extremities without clubbing, can move all extremities equally. NEUROLOGIC: Awake, alert, oriented to time, person and place. No dysphasia. No dysarthria. Pupil left APD/afferent pupillary defect, no nystagmus. No diplopia. Diminished visual acuity to finger counting on the left eye, normal on the right eye. Painless movement of the eyes. No facial palsy. Intact sensation on the bilateral facial regions. No dysarthria. No dysphasia. Intact speech content. Motor system examination 5/5 bilateral symmetrical upper and lower extremities, normal tone. No abnormal movement. Intact sensation to bilateral upper and lower extremity to light touch and temperature. Cwzsft-qz-njjc, cewe-fi-xyaj is intact. PSYCHIATRIC: Mood and behavior anxious. No hallucinations. LABORATORY DATA WBC 16.8, hemoglobin 16, platelet 330, sodium 140, potassium 3.8, calcium 8.8, INR one. IMAGING STUDIES Head CT scan without contrast - No acute intracranial abnormality. Chronic changes, mild white matter changes characteristic of chronic microvascular ischemia and old lacunes at the basal ganglia bilaterally. Brain MRI without contrast revealed diffuse bilateral cortical atrophy and chronic white matter changes, otherwise unremarkable exam. Carotid ultrasound - No significant atherosclerotic disease or stenosis within either internal carotid artery. There is antegrade flow in both vertebral arteries. DIAGNOSTIC IMPRESSION 1. Acute painless visual loss/acute ischemic DICTATION INTERRUPTED MD SHAKIRA Asif/ /9:36 PM /12:01 PM
== END 2017-06-30 15:31 | disposition home or self-care (01) ==
LOC: PHED 09:21 → PHEDA 10:53 → PH3B 12:49
PROVIDERS: ADMIT Family Medicine; ATTEND Family Medicine
DX: G45.3 Amaurosis fugax (principal); H46.8 Other optic neuritis; H47.012 Ischemic optic neuropathy, left eye; G25.0 Essential tremor; I10 Essential (primary) hypertension; E78.5 Hyperlipidemia, unspecified; E03.9 Hypothyroidism, unspecified; J44.9 Chronic obstructive pulmonary disease, unspecified; K21.9 Gastro-esophageal reflux disease without esophagitis; F17.210 Nicotine dependence, cigarettes, uncomplicated; Z23 Encounter for immunization; Z79.82 Long term (current) use of aspirin; Z79.899 Other long term (current) drug therapy
CPT/HCPCS: 70450; 70551; 80053; 80061; 82550; 82948; 83036; 84484; 85025; 85610; 85730; 90732; 93005; 93225; 93226; 93306; 93880; 96372; 97162; 99285; G0008; G0009; G0378; G8987; G8988; Q2038; 90471; 90686